=== PATIENT | female | born 1995 | race African-American/Black ===

== ENCOUNTER 2017-05-13 14:16 | Emergency (ER) | payer SELFPAY ==
[~2017-05-13] VITALS: Ht 154.9 cm; Wt 46.7 kg
[2017-05-13 15:16] VITALS: BP 107/61
--- NOTE | 2017-05-13 15:16 | NUR ---
Patient discharged to home in stable conditon. Written and verbal after care instructions given. Patient verbalizes understanding of instructions.
== END 2017-05-13 15:17 | disposition home or self-care (01) ==
LOC: ER 14:16
DX: H61.22 Impacted cerumen, left ear (principal)
CPT/HCPCS: A4663